=== PATIENT | male | born 1990 | race Caucasian/White ===

== ENCOUNTER 2017-08-22 12:06 | Day surgery (SDC) | payer OTHER ==
[2017-08-22] MEDS ORDERED: PROPOFOL 40 ML (13:06)
== END 2017-08-22 14:21 | disposition home or self-care (01) ==
LOC: GIL 12:06
DX: K21.9 Gastro-esophageal reflux disease without esophagitis (principal); K29.70 Gastritis, unspecified, without bleeding; F17.200 Nicotine dependence, unspecified, uncomplicated
CPT/HCPCS: 43239; 87081